=== PATIENT | female | born 1945 | race Caucasian/White ===

== ENCOUNTER 2018-12-07 08:57 | Emergency (ER) | payer OTHER ==
[2018-12-07 10:21] LABS: Urine Bacteria NONE SEEN /HPF (<20); Urine Culture Reflex Order NOT NEEDED; Urine RBC NONE SEEN /HPF (NONE SEEN)
[2018-12-07 10:22] LABS: Urine Blood 1+ (NEG); Urine Glucose NEGATIVE (NEG); Urine Protein NEGATIVE (NEG)
--- NOTE | 2018-12-07 10:33 | ER ---
Nurse's Notes [facility] Name: Glenda Parker Age: 73 yrs Sex: Female : 1945 Arrival Date: 12/07/2018 Time: 09:02 Bed 15 Private MD: Diagnosis: Low back pain-chronic;Urinary frequency Presentation: 12/07 09:10 Presenting complaint: Urinary frequency and cloudy urine since last night. Denies hb fever/pain. Transition of care: patient was not received from another setting of care. Onset of symptoms was December 06, 2018. Risk Assessment: Do you want to hurt yourself or someone else? Patient reports no desire to harm self or others. Initial Sepsis Screen: Does the patient meet any 2 criteria? No. Patient's initial sepsis screen is negative. Does the patient have a suspected source of infection? No. Patient's initial sepsis screen is negative. Care prior to arrival: None. 09:10 Method Of Arrival: Ambulatory 09:10 Acuity: REEMA 4 hb 09:33 Initial Sepsis Screen: Does the patient have a suspected source of infection? Yes: sg Dysuria/Frequency/Urgency/UTI. Historical: - Allergies: 09:13 No Known Allergies; hb - Home Meds: 09:13 Metoprolol Tartrate Oral [Active]; Omeprazole Oral [Active]; hb - PSHx: 09:13 mitral valve replacement; cardiac bypass; hip replacement - bilateral; Hysterectomy; hb back; - Immunization history:: Adult Immunizations up to date. - Social history:: Smoking status: Patient/guardian denies using tobacco. - Ebola Screening: : No symptoms or risks identified at this time. Screenin:16 Abuse screen: Denies threats or abuse. Denies injuries from another. Nutritional sg screening: No deficits noted. Tuberculosis screening: No symptoms or risk factors identified. Never had TB. Fall Risk None identified. Assessment: 09:16 General: Appears in no apparent distress. well groomed, well developed, well nourished, sg Behavior is calm, cooperative, appropriate for age, quiet. Pain: Denies pain. Neuro: Level of Consciousness is awake, alert, obeys commands, Oriented to person, place, time, Gait is steady, Speech is normal. Cardiovascular: Patient's skin is warm and dry. Respiratory: Airway is patent Respiratory effort is even, unlabored, Respiratory pattern is regular, symmetrical. GI: Abdomen is round non-distended. : Reports urinary frequency. EENT: No signs and/or symptoms were reported regarding the EENT system. Derm: Skin is pink, warm \T\ dry. Musculoskeletal: No signs and/or symptoms reported regarding the musculoskeletal system. Vital Signs: 09:11 BP 108 / 64; Pulse 65; Resp 16; Temp 97.4; Pulse Ox 100% on R/A; Weight 76.2 kg; Height hb 5 ft. 4 in. (162.56 cm); Pain 0/10; 09:11 Body Mass Index 28.84 (76.20 kg, 162.56 cm) hb ED Course: 09:02 Patient arrived in ED. mr 09:10 [facility] kb 09:10 Alan Somers MD is Attending Physician. kb 09:11 Triage completed. hb 09:11 Arm band placed on. hb 09:12 Doug Rizo, RN is Primary Nurse. sg 09:15 Urine collected: clean catch specimen. sg Administered Medications: No medications were administered Outcome: 10:32 Discharge ordered by . kb 10:38 Patient left the ED. sg Addendum: 12/10/2018 09:52 Addendum: Culture Results: Positive urine culture. Patient was not prescribed s s antibiotics at discharge. Report given to JENIFER for further evaluation and then to sanitation worker hosing machinery for follow up with patient. Phone call Attempt #1 Spoke with patient who reports feeling much better. Denies urinary S/S and states that she would not like antibiotics called in at this time. Pt verbalizes understanding importance of follow up care. Signatures: Marta Lee FNP-C FNP-CkDoug Forbes, RN RN sg Carina Correa mr MoraimaMaryan fernandez, RN LAURIE Laura Barr, LAURIE SULLIVAN
--- NOTE | 2018-12-07 10:33 | EDPHYS ---
Physician Documentation [facility] Name: Glenda Parker Age: 73 yrs Sex: Female : 1945 Arrival Date: 12/07/2018 Time: 09:02 Bed 15 Private MD: ED Physician Alan Somers HPI: 12/07 09:41 This 73 yrs old Female presents to ER via Ambulatory with complaints of kb Urinary Problem. 09:41 The patient presents with urinary symptoms, frequency, cloudy urine. Onset: The kb symptoms/episode began/occurred 3 day(s) ago. Modifying factors: The symptoms are alleviated by nothing, the symptoms are aggravated by nothing. Associated signs and symptoms: Pertinent positives: urinary frequency, Pertinent negatives: constipation, cramping, diarrhea, dyspareunia, dysuria, fever, hematuria, nausea, vaginal bleeding, vaginal discharge, vomiting. Severity of symptoms: At their worst the symptoms were moderate, in the emergency department the symptoms are unchanged. The patient has experienced similar episodes in the past, a few times. The patient has not recently seen a physician. Pt reports urinary frequency that started 3 days ago and has gotten worse. States she is urinating every 10 minutes now. States she started taking cranberry pills, but it hasn't worked. Denies fever, burning or flank pain. Request some pain medication for her chronic back pain because she has been working on a house and made the pain worse. . Historical: - Allergies: 09:13 No Known Allergies; hb - Home Meds: 09:13 Metoprolol Tartrate Oral [Active]; Omeprazole Oral [Active]; hb - PSHx: 09:13 mitral valve replacement; cardiac bypass; hip replacement - bilateral; Hysterectomy; hb back; - Immunization history:: Adult Immunizations up to date. - Social history:: Smoking status: Patient/guardian denies using tobacco. - Ebola Screening: : No symptoms or risks identified at this time. ROS: 09:39 Constitutional: Negative for fever, chills, and weight loss, Cardiovascular: Negative kb for chest pain, palpitations, and edema, Respiratory: Negative for shortness of breath, cough, wheezing, and pleuritic chest pain, Abdomen/GI: Negative for abdominal pain, nausea, vomiting, diarrhea, and constipation, MS/Extremity: Negative for injury and deformity, Skin: Negative for injury, rash, and discoloration, Neuro: Negative for headache, weakness, numbness, tingling, and seizure. 09:39 Back: Positive for pain at rest, pain with movement. 09:39 : Positive for urinary symptoms, urinary frequency, cloudy urine. Exam: 09:39 Constitutional: This is a well developed, well nourished patient who is awake, alert, kb and in no acute distress. Head/Face: Normocephalic, atraumatic. Neck: Trachea midline, no thyromegaly or masses palpated, and no cervical lymphadenopathy. Supple, full range of motion without nuchal rigidity, or vertebral point tenderness. No Meningismus. Chest/axilla: Normal chest wall appearance and motion. Nontender with no deformity. No lesions are appreciated. Cardiovascular: Regular rate and rhythm with a normal S1 and S2. No gallops, murmurs, or rubs. Normal PMI, no JVD. No pulse deficits. Respiratory: Lungs have equal breath sounds bilaterally, clear to auscultation and percussion. No rales, rhonchi or wheezes noted. No increased work of breathing, no retractions or nasal flaring. Abdomen/GI: Soft, non-tender, with normal bowel sounds. No distension or tympany. No guarding or rebound. No evidence of tenderness throughout. Skin: Warm, dry with normal turgor. Normal color with no rashes, no lesions, and no evidence of cellulitis. MS/ Extremity: Pulses equal, no cyanosis. Neurovascular intact. Full, normal range of motion. Neuro: Awake and alert, GCS 15, oriented to person, place, time, and situation. Cranial nerves II-XII grossly intact. Motor strength 5/5 in all extremities. Sensory grossly intact. Cerebellar exam normal. Normal gait. 09:39 Back: pain, that is moderate, of the lumbar area, ROM is normal, normal spinal alignment noted, CVA tenderness, is absent. Vital Signs: 09:11 BP 108 / 64; Pulse 65; Resp 16; Temp 97.4; Pulse Ox 100% on R/A; Weight 76.2 kg; Height hb 5 ft. 4 in. (162.56 cm); Pain 0/10; 09:11 Body Mass Index 28.84 (76.20 kg, 162.56 cm) hb MDM: 09:10 Patient medically screened. kb 09:40 Data reviewed: vital signs, nurses notes. Data interpreted: Pulse oximetry: on room air kb is 100 %. Interpretation: normal. 10:32 Counseling: I had a detailed discussion with the patient and/or guardian regarding: the kb historical points, exam findings, and any diagnostic results supporting the discharge/admit diagnosis, lab results, the need for outpatient follow up, a family practitioner, to return to the emergency department if symptoms worsen or persist or if there are any questions or concerns that arise at home. 12/07 09:11 Order name: Urine Culture kb 12/07 09:11 Order name: Urine Microscopic Only; Complete Time: 10:32 kb 12/07 09:11 Order name: Urine Dipstick-Ancillary (obtain specimen); Complete Time: 09:15 kb 12/07 09:21 Order name: Urine Dipstick--Ancillary (enter results); Complete Time: 10:32 ms Administered Medications: No medications were administered Disposition: 12:22 Co-signature as Attending Physician, Alan Somers MD I agree with the assessment and kdr plan of care. Disposition: 12/07/18 10:32 Discharged to Home. Impression: Low back pain - chronic, Urinary frequency. - Condition is Stable. - Discharge Instructions: Back Pain, Adult, [id number], Urinary Frequency, Adult, Back Exercises, [id number]. - Prescriptions for Tramadol 50 mg Oral Tablet - take 1 tablet by ORAL route every 8 hours as needed; 12 tablet. - Medication Reconciliation Form, Thank You Letter, Antibiotic Education, Prescription Opioid Use form. - Follow up: Emergency Department; When: As needed; Reason: Worsening of condition. Follow up: Private Physician; When: 2 - 3 days; Reason: Recheck today's complaints, Continuance of care, Re-evaluation by your physician. Signatures: Dispatcher [employer] Marta Tracy, MENA COLLINS-Doug Marcus, Alan Alexandra RN, MD MD [facility] Laura Barr RN RN shamir Corrections: (The following items were deleted from the chart) 09:40 09:39 Back: pain, that is moderate, of the lumbar area, ROM is normal, normal spinal kb alignment noted, kb 10:38 10:32 12/07/2018 10:32 Discharged to Home. Impression: Low back pain - chronic; Urinary sg frequency. Condition is Stable. Discharge Instructions: Urinary Tract Infection, Adult, [id number], Back Pain, Adult, [id number], Back Exercises, [id number]. Prescriptions for Macrobid 100 mg Oral Capsule - take 1 capsule by ORAL route every 12 hours for 10 days; 20 capsule, Tramadol 50 mg Oral Tablet - take 1 tablet by ORAL route every 8 hours as needed; 12 tablet. and Forms are Medication Reconciliation Form, Thank You Letter, Antibiotic Education, Prescription Opioid Use. Follow up: Emergency Department; When: As needed; Reason: Worsening of condition. Follow up: Private Physician; When: 2 - 3 days; Reason: Recheck today's complaints, Continuance of care, Re-evaluation by your physician. kb
== END 2018-12-07 10:38 | disposition home or self-care (01) ==
LOC: ER 08:57
DX: R35.0 Frequency of micturition (principal); Z95.4 Presence of other heart-valve replacement
CPT/HCPCS: 81003; 81015; 87077; 87086; 87088; 87186; 99282